=== PATIENT | male | born 1975 | race Caucasian/White ===

== ENCOUNTER 2019-12-01 22:04 | Emergency (ER) | payer SELFPAY ==
[2019-12-01] MEDS ORDERED: CLINDAMYCIN HCL 150 MG CAPSULE PO ONE (22:20)
[2019-12-01 22:25] VITALS: BP 151/98
--- NOTE | 2019-12-01 22:25 | ED Physician Documentation ---
Ear Complaints - HISTORIAN Historian: patient - HPI Chief Complaint: Ear Complaints Additional Information: 44 year old male presents with c/o left ear pain that started yesterday; denies any f/c/n/v/d. Timing: still present Location of Pain: L ear Severity: mild Associated Symptoms: aching - ROS CONST: no problems CVS/RESP: none GI/: denies: nausea, vomiting MS/SKIN/LYMPH: none NEURO/PSYCH: none - PAST HX Past History: none Immunizations: UTD Allergies/Adverse Reactions: Allergies Allergy/AdvReac Type Severity Reaction Status Date / Time amoxicillin Allergy Verified 12/01/19 22:25 Home Medications: Ambulatory Orders Medication Instructions Recorded Clindamycin HCl 300 mg PO QID #28 capsule 12/01/19 NK 12/01/19 - SOCIAL HX Smoking History: greater than 1 pack/day Alcohol Use: none Drug Use: none - FAMILY HX Family History: No - REVIEWED ASSESSMENTS Nursing Assessment Reviewed: Yes Vitals Reviewed: Yes ED Results Lab/Radiology - Orders Orders: ED Orders Category Date Time Status Clindamycin HCl [Cleocin] Med 12/01/19 22:20 Discontinued 600 mg PO NOW ONE Ear Complaint Physical Exam - EXAM General Appearance: no acute distress Ear: auricle nml, 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, pain w movement of auricl, left, TM's nml Mouth/Throat: lips nml, gums nml, pharynx nml, dental caries (poor dental care) Nose: nml inspection Head/Neck: atraumatic, neck nml inspection Eye: eyes nml inspection, PERRL Resp/CVS: breath sounds nml, heart sounds nml Skin: nml color Neuro/Psych: oriented x3, mood/affect nml Discharge Clincal Impression: Dental caries, Dysfunction of left eustachian tube Prescriptions: Clindamycin HCl 300 mg PO QID #28 capsule Referrals: Primary Doctor,No [Primary Care Provider] - 2 Days Additional Instructions: Take antibiotic as directed; Clindamycin 300mg by mouth 4 times a day for 7 days Alternate Tylenol and Ibuprofen as needed for pain Place cotton ball loosely in ears prior to shower to avoid getting water in the ear Follow up with PCP for re-evaluation Condition: Good Disposition: 01 HOME, SELF-CARE Decision to Admit: NO Decision Time: 22:25
== END 2019-12-01 22:30 | disposition home or self-care (01) ==
LOC: ED 22:04
DX: H69.92 Unspecified Eustachian tube disorder, left ear (principal); K02.9 Dental caries, unspecified; F17.210 Nicotine dependence, cigarettes, uncomplicated
CPT/HCPCS: 99283; 99284; A9270